=== PATIENT | male | born 1975 | race Caucasian/White ===

== ENCOUNTER 2017-04-06 19:44 | Emergency (ER) | payer OTHER ==
[2017-04-06 19:52] VITALS: BP 128/83; PULSE 100; BMI 25.1
--- NOTE | 2017-04-06 20:41 | PDOC ---
History of Present Illness - General Chief Complaint: Injury Stated Complaint: BACK PAIN Time Seen by Provider: 04/06/17 20:01 - History of Present Illness Initial Comments: 04/06/17 20:41 41 yo M with no significant pmh who presents with lower back pain. Patient reports sharp lower back pain of 2 days duration following rolling out of bed while sleep. No radiation, numbness/tingling, to distal extremities, or posterior thighs. Worse with movement, not improved with forward flexion or leaning forward. No alarm symptoms. Denies N/V, fevers/chills, urinary retention, urinary incontinence, fecal incontinence, or abdominal pain. Reports back injection with Tramadol [address] Mcneil. Pain refractory to Ibuprofen and Tylenol. Denies IV drug use or back trauma. No trauma. Past History - Past Medical History Allergies/Adverse Reactions: Allergies Allergy/AdvReac Type Severity Reaction Status Date / Time No Known Allergies Allergy Verified 04/06/17 19:52 Home Medications: Ambulatory Orders Cyclobenzaprine HCl [Flexeril -] 10 mg PO PRN PRN #30 tablet MDD 3 Tab 04/06/17 Phenytoin Na Extended [Dilantin -] 0 mg PO BID 04/06/17 Quetiapine Fumarate [Seroquel -] 0 mg PO HS 04/06/17 COPD: No Other medical history: epilepsy - Suicide/Smoking/Psychosocial Hx Smoking History: Never smoked Review of Systems - Review of Systems Comments:: 04/06/17 20:57 GENERAL/CONSTITUTIONAL: No fever or chills. No weakness. HEAD, EYES, EARS, NOSE AND THROAT: No change in vision. No ear pain or discharge. No sore throat.- CARDIOVASCULAR: No chest pain or shortness of breath RESPIRATORY: No cough, wheezing, or hemoptysis. GASTROINTESTINAL: No nausea, vomiting, diarrhea or constipation. GENITOURINARY: No dysuria, frequency, or change in urination. MUSCULOSKELETAL: + lower back pain. No joint or muscle swelling or pain. No neck or back pain. SKIN: No rash NEUROLOGIC: No headache, vertigo, loss of consciousness, or change in strength/ sensation. ENDOCRINE: No increased thirst. No abnormal weight change HEMATOLOGIC/LYMPHATIC: No anemia, easy bleeding, or history of blood clots. ALLERGIC/IMMUNOLOGIC: No hives or skin allergy. *Physical Exam - Vital Signs Last Vital Signs Temp Pulse Resp BP Pulse Ox 100 H 16 128/83 98 04/06/17 19:51 04/06/17 19:51 04/06/17 19:51 04/06/17 19:51 - Physical Exam Comments: 04/06/17 20:59 GENERAL: Awake, alert, and fully oriented, in no acute distress HEAD: No signs of trauma, normocephalic, atraumatic EYES: PERRLA, EOMI, sclera anicteric, conjunctiva clear ENT: Hearing grossly normal, nares patent, oropharynx clear without exudates. Moist mucosa NECK: Normal ROM, supple, no JVD, or masses LUNGS: No distress, speaks full sentences, clear to auscultation bilaterally HEART: Regular rate and rhythm, normal S1 and S2, no murmurs, rubs or gallops, peripheral pulses normal and equal bilaterally. ABDOMEN: Soft, nontender, normoactive bowel sounds. No guarding, no rebound. No masses. Neg CVA or suprapubic ttp. EXTREMITIES : Normal inspection, Normal range of motion, no edema. No clubbing or cyanosis. 5/5 strength BL . Sensation to pinprick intact BL. Propioception intact. Reflexes 2 + and symmetric. BACK: + Sacral ttp. Neg straight leg raise test. Clear to inspection. NEUROLOGICAL: Cranial nerves II through XII grossly intact. Normal speech, normal gait, no focal sensorimotor deficits SKIN: Warm, Dry, normal turgor, no rashes or lesions noted. Medical Decision Making - Medical Decision Making 04/06/17 21:18 41 yo M with no significant pmh who presents with sharp, non radiating, lower back pain of 2 days duration following fall from bed while sleep. No numbness/ tingling, to distal extremities, or posterior thighs. Worse with movement. No alarm symptoms; N/V, fevers/chills, urinary retention, urinary incontinence, fecal incontinence, or abdominal pain. Denies IV drug use or back trauma. Physical exam with parapsinal sacral ttp. Neg straight leg raise test. Gross sensorimotor intact. Absent neuro deficits. Low suspicion for cauda equina with absent urinary complaints, or perianal parasthesia. History and physical exam non indicative of spinal stenosis. Reasonable to suspect fracture given mechanism of injury. Low suspicion for herniated disc given neg straight leg raise test and absent midline ttp, with absent sensory change. Pain most likely 2/2 lumbar sacral sprain. ED Course: Tylenol 650 mg PO LUMBAR SACRAL RAD 04/06/17 21:39 Toradol 60 IM 04/06/17 22:53 LUMBAR SACRAL RAD: No fracture or traumatic subluxation. Alignment and vertebral body heights maintained. 04/06/17 22:54 Stable D/c with strict return precautions. *DC/Admit/Observation/Transfer Diagnosis at time of Disposition: Sacral back pain - Discharge Dispostion Disposition: HOME Condition at time of disposition: Stable Admit: No - Prescriptions Prescriptions: Cyclobenzaprine HCl [Flexeril -] 10 mg PO PRN PRN #30 tablet MDD 3 Tab PRN Reason: Back Pain - Referrals Referrals: Dante Mcneil [Primary Care Provider] - - Patient Instructions Printed Discharge Instructions: DI for Back Strain or Sprain Additional Instructions: Please return to the emergency department with any new or worsening symptoms or concerns. Please follow up with your primary care physician within the next 1 week. - Post Discharge Activity - Attestations Physician Attestion: 04/06/17 22:18 I attest to the information in this note.
[2017-04-06] MEDS ORDERED: ACETAMINOPHEN 325 MG TABLET (FP) PO ONE (20:54)
[2017-04-06] MEDS ORDERED: ACETAMINOPHEN 325 MG TABLET (FP) ONE (21:01)
[2017-04-06] MEDS ORDERED: KETOROLAC TROMETHAMINE 30 MG/1 ML VIAL IM ONE (21:38)
--- NOTE | 2017-04-06 21:39 | PDOC ---
Attending Attestation - Resident Resident Name: Jalen Dior - HPI HPI: 04/06/17 21:38 Pt comes with acute on chronic back pain. - Physicial Exam PE: 04/06/17 21:38 agree with resident exam - Medical Decision Making 04/06/17 21:38 Imaging studies pending 04/06/17 22:53 Patient Name: LILIANA JAVED THIS IS A PRELIMINARY REPORT FROM [facility] DATE OF SERVICE: 2017-04-06 21:11:18 IMAGES: 6 EXAM: XR LUMBAR SPINE HISTORY: 41-year-old male fall back pain back spasm COMPARISON: None. FINDINGS: No fracture or traumatic subluxation. Alignment and vertebral body heights are maintained. IMPRESSION: No fracture or traumatic subluxation. If clinically indicated followup outpatient MRI lumbar spine may be needed to evaluate for soft tissue abnormality.
[2017-04-06] MEDS ORDERED: KETOROLAC TROMETHAMINE 30 MG/1 ML VIAL ONE (21:53)
== END 2017-04-06 22:59 | disposition home or self-care (01) ==
LOC: JER 19:44
PROC: 3E0233Z Introduction of Anti-inflammatory into Muscle, Percutaneous Approach (ICD-10-PCS; principal; 2017-04-06)
DX: M54.5 Low back pain (principal); W06.XXXA Fall from bed, initial encounter; Y93.89 Activity, other specified; Y92.013 Bedroom of single-family (private) house as the place of occurrence of the external cause
CPT/HCPCS: 72100-TC; 96372; 99282-25

== ENCOUNTER 2017-05-27 19:21 | Emergency (ER) | payer OTHER ==
[2017-05-27 19:27] VITALS: BP 144/89; PULSE 102; TEMP 98.6; BMI 27.5
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
[2017-05-27] MEDS ORDERED: RANITIDINE HCL 150 MG TABLET (FP) PO ONE (19:51)
[2017-05-27] MEDS ORDERED: MAG HYDROX/AL HYDROX/SIMETH 30 ML UNIT-DOSE CUP PO ONE (19:51)
[2017-05-27] MEDS ORDERED: ONDANSETRON 4 MG TABLET PO ONE (19:51)
--- NOTE | 2017-05-27 19:57 | PDOC ---
History of Present Illness - General Chief Complaint: Cold Symptoms Stated Complaint: VOMITING/DIARRHEA Time Seen by Provider: 05/27/17 19:23 History Source: Patient - History of Present Illness Timing/Duration: reports: constant Abdominal Pain Onset Location: reports: epigastric Past History - Past Medical History Allergies/Adverse Reactions: Allergies Allergy/AdvReac Type Severity Reaction Status Date / Time No Known Allergies Allergy Verified 04/06/17 19:52 Home Medications: Ambulatory Orders Phenytoin Na Extended [Dilantin -] 100 mg PO BID 04/06/17 Quetiapine Fumarate [Seroquel -] 50 mg PO HS 04/06/17 Bismuth Subsalicylate [Pepto-Bismol -] 524 mg PO ASDIR #1 bottle 05/27/17 Ondansetron HCl [Zofran] 4 mg PO Q8H #15 tablet 05/27/17 COPD: No Seizures: Yes - Suicide/Smoking/Psychosocial Hx Smoking History: Never smoked Review of Systems - Review of Systems Constitutional: No: Chills, Fever HEENTM: No: Ear Pain, Throat Pain Respiratory: Yes: Cough. No: Shortness of Breath, Wheezing Cardiac (ROS): No: Chest Pain ABD/GI: Yes: Diarrhea, Nausea, Vomiting *Physical Exam - Vital Signs Last Vital Signs Temp Pulse Resp BP Pulse Ox 98.6 F 102 H 18 144/89 99 05/27/17 19:24 05/27/17 19:24 05/27/17 19:24 05/27/17 19:24 05/27/17 19:24 - Physical Exam General Appearance: Yes: Apparent Distress. No: Appropriately Dressed HEENT: positive: Normal Voice. negative: Scleral Icterus (R), Scleral Icterus ( L) Neck: positive: Supple Respiratory/Chest: positive: Lungs Clear, Normal Breath Sounds. negative: Respiratory Distress Cardiovascular: positive: Regular Rate, S1, S2 Gastrointestinal/Abdominal: positive: Soft. negative: Tender Integumentary: positive: Dry, Warm Neurologic: positive: Fully Oriented, Alert, Normal Mood/Affect Medical Decision Making - Medical Decision Making 05/27/17 19:51 41-year-old male history of seizures, here with nausea, vomiting, diarrhea and upper abdominal pain 4 days. States he vomited 3 times. Denies hematemesis. Had only 1 episode of non-bloody diarrhea and today started complaining of vague upper abdominal pain. Patient also complaining of mostly dry cough with possible pleuritic chest pain on the left and generalized body aches. No fever or chills. Denies sick contacts, recent travel or antibiotic use. Patient well -appearing in ED with mild tachycardia, otherwise examination unremarkable. X- ray sent at triage and is unremarkable. Will discharge with supportive treatment 05/27/17 19:58 *DC/Admit/Observation/Transfer Diagnosis at time of Disposition: Gastroenteritis - Discharge Dispostion Disposition: HOME Condition at time of disposition: Good - Prescriptions Prescriptions: Bismuth Subsalicylate [Pepto-Bismol -] 524 mg PO ASDIR #1 bottle Ondansetron HCl [Zofran] 4 mg PO Q8H #15 tablet - Referrals - Patient Instructions Printed Discharge Instructions: DI for Viral Gastroenteritis -- Adult Additional Instructions: Maintain adequate hydration, for the remainder of your symptoms, maintain a bland diet such as bananas, rice, applesauce and toast. These foods can help make your stools firmer and also replete certainly essential electrolytes. Take medications as directed Return for worsening of symptoms Please follow up with your primary care physician as needed Print Language: ENGLISH - Post Discharge Activity
== END 2017-05-27 20:27 | disposition home or self-care (01) ==
LOC: JERFT 19:21
DX: K52.9 Noninfective gastroenteritis and colitis, unspecified (principal)
CPT/HCPCS: 71046-TC; 99281-25

== ENCOUNTER 2018-09-01 21:06 | Emergency (ER) | payer OTHER ==
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
[2018-09-01 21:52] VITALS: BP 131/88; PULSE 75; TEMP 98.1; BMI 25.1
[2018-09-01] MEDS ORDERED: KETOROLAC TROMETHAMINE 60 MG/2 ML VIAL IM ONE (22:21)
[2018-09-01] MEDS ORDERED: KETOROLAC TROMETHAMINE 60 MG/2 ML VIAL ONE (22:36)
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
== END 2018-09-01 23:30 | disposition home or self-care (01) ==
LOC: JER 21:06
PROC: 3E0233Z Introduction of Anti-inflammatory into Muscle, Percutaneous Approach (ICD-10-PCS; principal; 2018-09-01)
DX: M54.5 Low back pain (principal); Z86.69 Personal history of other diseases of the nervous system and sense organs; Z87.820 Personal history of traumatic brain injury; W18.39XA Other fall on same level, initial encounter; Y93.89 Activity, other specified; Y92.89 Other specified places as the place of occurrence of the external cause; Y99.8 Other external cause status
CPT/HCPCS: 96372; 99281-25

== ENCOUNTER 2018-10-06 08:22 | Emergency (ER) | payer OTHER ==
[2018-10-06 08:28] VITALS: BMI 26.5
[2018-10-06] MEDS ORDERED: morphine CARPU-JECT 4 MG/1 ML DISP.SYRIN IVPUSH ONE (08:53)
[2018-10-06] MEDS ORDERED: SODIUM CHLORIDE 1,000 ML IV STA (08:53)
[2018-10-06] MEDS ORDERED: morphine SULFATE 4 MG/ML VIAL ONE (09:16)
--- NOTE | 2018-10-06 09:16 | PDOC ---
History of Present Illness - General Chief Complaint: Ear Problem Stated Complaint: EAR PAIN Time Seen by Provider: 10/06/18 08:50 History Source: Patient - History of Present Illness Timing/Duration: other Past History - Past Medical History Allergies/Adverse Reactions: Allergies Allergy/AdvReac Type Severity Reaction Status Date / Time No Known Allergies Allergy Verified 10/06/18 08:27 Home Medications: Ambulatory Orders Phenytoin Na Extended [Dilantin -] 100 mg PO BID 04/06/17 Gabapentin 0 mg PO DAILY 10/06/18 COPD: No Seizures: Yes - Immunization History Immunization Up to Date: (Unknown) - Suicide/Smoking/Psychosocial Hx Smoking History: Never smoked Information on smoking cessation initiated: No Hx Alcohol Use: No Drug/Substance Use Hx: No Review of Systems - Review of Systems Constitutional: Yes: Fever. No: Chills Respiratory: No: Shortness of Breath *Physical Exam - Vital Signs Last Vital Signs Temp Pulse Resp BP Pulse Ox 97.6 F 90 19 131/96 97 10/06/18 08:25 10/06/18 08:25 10/06/18 08:25 10/06/18 08:25 10/06/18 08:25 - Physical Exam General Appearance: Yes: Appropriately Dressed HEENT: positive: Normal Voice, Other (extensive ulcerative lesions overlying soft palate/post pharymnx and L nares) Neck: positive: Supple. negative: Lymphadenopathy (R), Lymphadenopathy (L) Respiratory/Chest: negative: Respiratory Distress, Stridor Integumentary: positive: Dry, Warm Neurologic: positive: Fully Oriented, Alert, Normal Mood/Affect ED Treatment Course - LABORATORY CBC & Chemistry Diagram: 10/06/18 09:20 10/06/18 09:20 - RADIOLOGY Radiology Studies Ordered: Category Date Time Status SINUS CT W/O CONTRAST [CT] Stat CT Scan 10/06/18 08:53 Ordered Medical Decision Making - Medical Decision Making 10/06/18 08:55 42 yo male, states he had b/l tonsillectomy/palate/nasal surgery 2/2 sleep apnea /deviated septum last week at [facility], currently on abx (does not remember name) and tylenol #3 but here with worsening pain to posterior pharynx and nasal area and unable to eugenio po since procedure. States he is currently on a puree diet and that when he eats, food comes through his nose. Reports +subj fever. No n/v, stridor or SOB. States he was seen in the ER at [facility] yesterday and discharged from ED to f/u with his surgeon See exam Post op pain, r/o infection S/p recent ENT surgery 2/2 SAVITA/deviated septum On abx and pain meds Unable to eugenio po since Exam remarkable for ulcerative lesions overlying soft palate/posterior pharynx and L nares, ? post op changes -pain control -CT -labs -consider transfer as surgery performed at [facility] 10/06/18 10:26 10/06/18 10:32 Spoke to staff at transfer center who informed me that surgeon was at Dr. Dany Vega who performed surgery on 10/01. States M.D.to call me back to discuss disposition 10/06/18 10:33 10/06/18 11:[address] read pending. I spoke to Dr. Almanza, ENT at [facility], who reports that exam findings most likely postop changes and states CT not necessary though aware that CT was already done. Agrees that if patient cannot tolerate po, needs to be admitted and recommends ER to ER transfer. MD also rec a dose of decadron here. Dr Jin discussed case w/ Dr Pandey, ER attg at [facility], and pt was accepted for transfer as of 10:51 AM. Face sheet faxed and ER nurse to give report. Was told by transfer staff that ETA is within 30 minutes. Will send over medical records including CT disc *DC/Admit/Observation/Transfer Diagnosis at time of Disposition: Post-op pain - Discharge Dispostion Disposition: TRANSFER ACUTE CARE/OTHER HOSP Condition at time of disposition: Fair - Referrals Referrals: Dante Mcneil [Primary Care Provider] - - Patient Instructions - Post Discharge Activity
[2018-10-06 09:39] LABS: BASO % 0.7 % (0-2.0); EOS % 1.1 % (0-4.5); HEMATOCRIT 44.9 % (35.4-49); HEMOGLOBIN 15.1 GM/dL (11.7-16.9); LYMPH % 18.9 % (8-40); MCH 29.7 pg (25.7-33.7); MCHC 33.6 g/dl (32.0-35.9); MEAN CELL VOLUME 88.3 fl (80-96); MEAN PLT VOLUME 7.4 fl (7.5-11.1); MONO % 8.7 % (3.8-10.2); NEUT % 70.6 % (42.8-82.8); PLATELET COUNT 369 K/MM3 (134-434); RBC 5.08 M/mm3 (4.00-5.60); RDW 12.9 % (11.9-15.9); WHITE BLOOD COUNT 11.1 K/mm3 (4.0-10.0)
[2018-10-06 09:55] LABS: INR 1.16 (0.83-1.09); PROTHROMBIN TIME (PATIENT) 13.7 SEC (9.7-13.0)
[2018-10-06 10:05] LABS: ALBUMIN 3.6 g/dl (3.4-5.0); BILIRUBIN,TOTAL 0.6 mg/dL (0.2-1); CALCIUM 9.3 mg/dL (8.5-10.1); CREATININE 0.9 mg/dL (0.55-1.3); POTASSIUM 3.9 mmol/L (3.5-5.1); TOT PROT 8.4 g/dl (6.4-8.2)
[2018-10-06] MEDS ORDERED: DEXAMETHASONE SOD PHOSPHATE 10 MG/1 ML VIAL IVPUSH ONE (10:40)
[2018-10-06] MEDS ORDERED: DEXAMETHASONE SOD PHOSPHATE 10 MG/1 ML VIAL ONE (10:47)
--- NOTE | 2018-10-06 11:04 | PDOC ---
*Physical Exam - Vital Signs Last Vital Signs Temp Pulse Resp BP Pulse Ox 97.6 F 90 19 131/96 97 10/06/18 08:25 10/06/18 08:25 10/06/18 08:25 10/06/18 08:25 10/06/18 08:25 ED Treatment Course - LABORATORY CBC & Chemistry Diagram: 10/06/18 09:20 10/06/18 09:20 - ADDITIONAL ORDERS Additional order review: Laboratory Results 10/06/18 10/06/18 09:20 09:20 PT with INR 13.70 H INR 1.16 H Sodium 137 Potassium 3.9 Chloride 103 Carbon Dioxide 28 Anion Gap 6 L BUN 23 H Creatinine 0.9 Est GFR (CKD-EPI)AfAm 121.67 Est GFR (CKD-EPI)NonAf 104.98 Random Glucose 106 Calcium 9.3 Total Bilirubin 0.6 AST 19 ALT 56 Alkaline Phosphatase 148 H Total Protein 8.4 H Albumin 3.6 10/06/18 09:20 RBC 5.08 MCV 88.3 MCHC 33.6 RDW 12.9 MPV 7.4 L Neutrophils % 70.6 Lymphocytes % 18.9 Monocytes % 8.7 Eosinophils % 1.1 Basophils % 0.7 - Medications Given in the ED: ED Medications Discontinued Medications Generic Name Dose Route Start Last Admin Trade Name Freq PRN Reason Stop Dose Admin Sodium Chloride 1,000 mls @ 1,000 mls/hr 10/06/18 08:53 10/06/18 09:33 Normal Saline - IV 10/06/18 09:52 1,000 mls/hr ASDIR STA Administration Morphine Sulfate 4 mg 10/06/18 08:53 10/06/18 09:34 Morphine Injection - IVPUSH 10/06/18 08:54 4 mg ONCE ONE Administration Medical Decision Making - Medical Decision Making 10/06/18 11:03 42y/o M presents for evaluation of pain/swelling to ermelinda-/naso pharynx following ENT surgery at [facility]. VSS, wbc 11 ct pending discussed with operating ENT Dr. Vega, recommends transfer accepted for ED to ED transfer *DC/Admit/Observation/Transfer - Referrals Referrals: Dante Mcneil [Primary Care Provider] - - Patient Instructions - Post Discharge Activity
[2018-10-06 11:13] VITALS: BP 126/86; PULSE 79; TEMP 97.9
== END 2018-10-06 11:24 | disposition short-term general hospital (02) ==
LOC: JER 08:22 → JERFT 08:22 → JER 11:24
PROC: 3E0337Z Introduction of Electrolytic and Water Balance Substance into Peripheral Vein, Percutaneous Approach (ICD-10-PCS; principal; 2018-10-06)
PROC: 3E0333Z Introduction of Anti-inflammatory into Peripheral Vein, Percutaneous Approach (ICD-10-PCS; 2018-10-06)
DX: G89.18 Other acute postprocedural pain (principal); R07.0 Pain in throat
CPT/HCPCS: 36415; 70487-TC; 80053; 85025; 85610; 86850; 86900; 86901; 96361; 96374; 96375; 99283-25; J1100; J7030

== ENCOUNTER 2018-12-12 12:11 | Emergency (ER) | payer OTHER ==
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
[2018-12-12 12:31] VITALS: BMI 26.5
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
[2018-12-12 14:30] LABS: BASO % 0.7 % (0-2.0); EOS % 0.2 % (0-4.5); HEMATOCRIT 45.9 % (35.4-49); HEMOGLOBIN 15.6 GM/dL (11.7-16.9); LYMPH % 20.9 % (8-40); MCH 29.8 pg (25.7-33.7); MEAN CELL VOLUME 87.5 fl (80-96); MEAN PLT VOLUME 7.7 fl (7.5-11.1); MONO % 6.8 % (3.8-10.2); NEUT % 71.4 % (42.8-82.8); PLATELET COUNT 278 K/MM3 (134-434); RBC 5.24 M/mm3 (4.00-5.60); RDW 13.1 % (11.9-15.9)
[2018-12-12 14:57] LABS: ALBUMIN 3.9 g/dl (3.4-5.0); BILIRUBIN,TOTAL 0.4 mg/dL (0.2-1); BLOOD UREA NITROGEN 12.2 mg/dL (7-18); CALCIUM 9.3 mg/dL (8.5-10.1); CREATININE 0.9 mg/dL (0.55-1.3); MAGNESIUM 2.2 mg/dL (1.8-2.4); METHADONE, UR NEGATIVE ng/ml (CUTOFF=300); OPIATES, URI NEGATIVE ng/ml (CUTOFF=300); PHENCYCLIDINE,URINE NEGATIVE ng/ml (CUTOFF=25); POTASSIUM 4.4 mmol/L (3.5-5.1); TOT PROT 7.9 g/dl (6.4-8.2); URINE AMPHETAMINES NEGATIVE ng/ml (CUTOFF=500); URINE BARBITURATES NEGATIVE ng/ml (CUTOFF=200); URINE BENZODIAZEPINES NEGATIVE ng/ml (CUTOFF=200)
[2018-12-12 15:19] LABS: COCAINE, UR POSITIVE ng/ml (CUTOFF=300)
[2018-12-12] MEDS ORDERED: PHENYTOIN SODIUM 100 MG/2 ML VIAL IVPB ONE (15:37)
[2018-12-12] MEDS ORDERED: MAG HYDROX/AL HYDROX/SIMETH 30 ML UNIT-DOSE CUP PO ONE (15:38)
[2018-12-12] MEDS ORDERED: FAMOTIDINE 20 MG/50 ML IVPB 20 MG/50 ML MG IVPB ONE ×2 (15:39→15:56)
[2018-12-12] MEDS ORDERED: MAG HYDROX/AL HYDROX/SIMETH 30 ML UNIT-DOSE CUP ONE (15:56)
[2018-12-12 17:38] VITALS: BP 130/88; PULSE 65; TEMP 98.5
--- NOTE | 2018-12-13 10:36 | EKG ---
Test Reason : Blood Pressure : / mmHG Vent. Rate : 064 BPM Atrial Rate : 064 BPM P-R Int : 160 ms QRS Dur : 086 ms QT Int : 452 ms P-R-T Axes : 066 064 049 degrees QTc Int : 466 ms NORMAL SINUS RHYTHM POSSIBLE LEFT ATRIAL ENLARGEMENT EARLY REPOLARIZATION PATTERN ST ELEVATION INFERIOR LEADS NO PREVIOUS ECGS AVAILABLE Confirmed by MARZENA LE MD ([id number]) on 12/13/2018 10:36:00 AM Referred By: Confirmed By:MARZENA LE MD
== END 2018-12-12 18:27 | disposition home or self-care (01) ==
LOC: JER 12:11
PROC: 3E033GC Introduction of Other Therapeutic Substance into Peripheral Vein, Percutaneous Approach (ICD-10-PCS; principal; 2018-12-12)
PROC: 3E033GC Introduction of Other Therapeutic Substance into Peripheral Vein, Percutaneous Approach (ICD-10-PCS; 2018-12-12)
DX: R56.1 Post traumatic seizures (principal); F14.10 Cocaine abuse, uncomplicated; Z87.828 Personal history of other (healed) physical injury and trauma; M54.89 Other dorsalgia; G89.29 Other chronic pain; Z86.59 Personal history of other mental and behavioral disorders; Z87.891 Personal history of nicotine dependence
CPT/HCPCS: 36415; 70450-TC; 71045-TC-FY; 80053; 80185; 80307; 82550; 83690; 83735; 84484; 85025; 93005; 93010; 96365; 96375; 99284-25

== ENCOUNTER 2022-07-02 13:39 | Inpatient (IN) | payer OTHER ==
[2022-07-02 15:18] VITALS: BMI 26.6
[2022-07-02] MEDS ORDERED: MAGNESIUM HYDROX 2400MG/30ML ORAL SUSPENSION 30 ML CUP PO PRN (15:27)
[2022-07-02] MEDS ORDERED: BISMUTH SUBSALICYLATE 524 MG/30 ML PO PRN (15:27)
[2022-07-02] MEDS ORDERED: IBUPROFEN 600 MG TABLET (FP) PO PRN (15:27)
[2022-07-02] MEDS ORDERED: METHOCARBAMOL 500 MG TABLET PO PRN (15:27)
[2022-07-02] MEDS ORDERED: POLYETHYLENE GLYCOL (HEALTHYLAX) 3350 17 GM PACKET PO PRN (15:27)
[2022-07-02] MEDS ORDERED: LOPERAMIDE HCL 2 MG CAPSULE PO PRN (15:27)
[2022-07-02] MEDS ORDERED: ONDANSETRON *ODT* 4 MG TABLET SL PRN (15:27)
[2022-07-02] MEDS ORDERED: NICOTINE 10 MG CARTRIDGE (INHALER) IH PRN (15:27)
[2022-07-02] MEDS ORDERED: MAG HYDROX/AL HYDROX/SIMETH 30 ML UNIT-DOSE CUP PO PRN (15:27)
[2022-07-02] MEDS ORDERED: IBUPROFEN 400 MG TABLET (FP) PO PRN (15:27)
[2022-07-02] MEDS ORDERED: hydrOXYzine PAMOATE 25 MG CAPSULE (FP) PO PRN (15:27)
[2022-07-02] MEDS ORDERED: DICYCLOMINE HCL 10 MG CAPSULE PO PRN (15:27)
[2022-07-02] MEDS ORDERED: BENZOCAINE/MENTHOL (CHLORASEPTIC ) LOZENGE MM PRN (15:27)
[2022-07-02] MEDS ORDERED: NALOXONE HCL (KLOXXADO) 8 MG SPRAY NS PRN (15:27)
[2022-07-02] MEDS ORDERED: ACETAMINOPHEN 325 MG TABLET (FP) PO PRN ×2 (15:27)
[2022-07-02] MEDS: NICOTINE 14 MG/24 HOURS TOPICAL PATCH TD SCH (17:21)
[2022-07-02] MEDS: PRENATAL VITAMINS W/ FOLIC ACID TABLET (FP) PO SCH (17:21)
[2022-07-02] MEDS: MELATONIN 5 MG TABLETS PO SCH (22:26)
[2022-07-02] MEDS: THIAMINE HCL 100 MG TABLET (FP) PO SCH (22:26)
[2022-07-03] MEDS ORDERED: chlordiazePOXIDE HCL 25 MG CAPSULE PO PRN (08:57)
[2022-07-03] MEDS: chlordiazePOXIDE HCL 25 MG CAPSULE PO SCH ×3 (10:07→22:17)
[2022-07-03] MEDS: PRENATAL VITAMINS W/ FOLIC ACID TABLET (FP) PO SCH (10:07)
[2022-07-03] MEDS: NICOTINE 14 MG/24 HOURS TOPICAL PATCH TD SCH (10:41)
[2022-07-03 11:32] LABS: HEMATOCRIT 40.3 % (35.4-49); HEMOGLOBIN 13.5 GM/dL (11.7-16.9); MCH 29.4 pg (25.7-33.7); MCHC 33.5 g/dl (32.0-35.9); MEAN CELL VOLUME 87.9 fl (80-96); MEAN PLT VOLUME 8.4 fl (7.5-11.1); PLATELET COUNT 216 10^3/uL (134-434); RBC 4.59 M/mm3 (4.00-5.60); RDW 13.5 % (11.9-15.9); WHITE BLOOD COUNT 6.6 K/mm3 (4.0-10.0)
[2022-07-03 11:53] LABS: ALBUMIN 3.1 g/dl (3.4-5.0); BLOOD UREA NITROGEN 8.1 mg/dL (7-18); CALCIUM 8.6 mg/dL (8.5-10.1)
[2022-07-03 11:55] LABS: CREATININE 0.7 mg/dL (0.55-1.3)
[2022-07-03 11:57] LABS: BILIRUBIN,TOTAL 0.2 mg/dL (0.2-1); TOT PROT 5.8 g/dl (6.4-8.2)
[2022-07-03] MEDS ORDERED: POTASSIUM CHLORIDE ORAL LIQUID 20 MEQ/15 ML PO ONE (13:59)
[2022-07-03] MEDS: OLANZapine 10 MG TABLET PO SCH (22:17)
[2022-07-03] MEDS: THIAMINE HCL 100 MG TABLET (FP) PO SCH (22:17)
[2022-07-03] MEDS: POTASSIUM CHLORIDE ORAL LIQUID 20 MEQ/15 ML PO SCH (22:17)
[2022-07-03] MEDS: MELATONIN 5 MG TABLETS PO SCH (22:17)
[2022-07-04] MEDS: chlordiazePOXIDE HCL 25 MG CAPSULE PO SCH ×4 (05:52→22:34)
[2022-07-04] MEDS ORDERED: PATIENT'S OWN MEDICATION (NON-FORMULARY) (Olanzapine [Olanzapine] 10 MG Tablet) PO SCH (10:00)
[2022-07-04] MEDS: POTASSIUM CHLORIDE ORAL LIQUID 20 MEQ/15 ML PO SCH ×2 (10:26→22:34)
[2022-07-04] MEDS: PRENATAL VITAMINS W/ FOLIC ACID TABLET (FP) PO SCH (10:26)
[2022-07-04] MEDS: NICOTINE 14 MG/24 HOURS TOPICAL PATCH TD SCH (10:41)
[2022-07-04] MEDS: THIAMINE HCL 100 MG TABLET (FP) PO SCH (22:34)
[2022-07-04] MEDS: OLANZapine 10 MG TABLET PO SCH (22:34)
[2022-07-04] MEDS: MELATONIN 5 MG TABLETS PO SCH (22:34)
[2022-07-05] MEDS: chlordiazePOXIDE HCL 25 MG CAPSULE PO SCH ×4 (05:46→22:52)
[2022-07-05] MEDS: NICOTINE 14 MG/24 HOURS TOPICAL PATCH TD SCH (10:32)
[2022-07-05] MEDS: PRENATAL VITAMINS W/ FOLIC ACID TABLET (FP) PO SCH (10:32)
[2022-07-05] MEDS: MELATONIN 5 MG TABLETS PO SCH (22:52)
[2022-07-05] MEDS: OLANZapine 10 MG TABLET PO SCH (22:52)
[2022-07-05] MEDS: THIAMINE HCL 100 MG TABLET (FP) PO SCH (22:52)
[2022-07-06] MEDS ORDERED: chlordiazePOXIDE HCL 10 MG CAPSULE PO PRN
[2022-07-06] MEDS: chlordiazePOXIDE HCL 10 MG CAPSULE PO SCH ×4 (05:40→22:26)
[2022-07-06] MEDS: PRENATAL VITAMINS W/ FOLIC ACID TABLET (FP) PO SCH (10:25)
[2022-07-06] MEDS: NICOTINE 14 MG/24 HOURS TOPICAL PATCH TD SCH (10:26)
[2022-07-06] MEDS: MELATONIN 5 MG TABLETS PO SCH (22:26)
[2022-07-06] MEDS: THIAMINE HCL 100 MG TABLET (FP) PO SCH (22:26)
[2022-07-06] MEDS: OLANZapine 10 MG TABLET PO SCH (22:26)
[2022-07-07] MEDS: chlordiazePOXIDE HCL 10 MG CAPSULE PO SCH ×2 (05:41→17:29)
[2022-07-07] MEDS: PRENATAL VITAMINS W/ FOLIC ACID TABLET (FP) PO SCH (10:48)
[2022-07-07] MEDS: NICOTINE 14 MG/24 HOURS TOPICAL PATCH TD SCH (10:49)
[2022-07-07] MEDS: MELATONIN 5 MG TABLETS PO SCH (22:19)
[2022-07-07] MEDS: THIAMINE HCL 100 MG TABLET (FP) PO SCH (22:19)
[2022-07-07] MEDS: OLANZapine 10 MG TABLET PO SCH (22:19)
[2022-07-08] MEDS ORDERED: chlordiazePOXIDE HCL 10 MG CAPSULE PO ONE (05:00)
[2022-07-08 06:04] VITALS: RESP 18
[2022-07-08 09:12] VITALS: BP 121/72; PULSE 90; TEMP 97.3
[2022-07-08] MEDS: PRENATAL VITAMINS W/ FOLIC ACID TABLET (FP) PO SCH (10:16)
[2022-07-08] MEDS: NICOTINE 14 MG/24 HOURS TOPICAL PATCH TD SCH (10:18)
[2022-07-08] MEDS ORDERED: PHENYTOIN NA EXTENDED 100 MG CAPSULE (FP) PO SCH ×2 (14:00→22:00)
== END 2022-07-08 12:37 | disposition home or self-care (01) | DRG 774 ==
LOC: YASAS 13:39 → Y3N 16:38
PROVIDERS: ADMIT Allergy & Immunology; ATTEND Surgery
PROC: HZ2ZZZZ Detoxification Services for Substance Abuse Treatment (ICD-10-PCS; principal; 2022-07-02)
DX: F10.230 Alcohol dependence with withdrawal, uncomplicated (principal); F14.20 Cocaine dependence, uncomplicated; F17.210 Nicotine dependence, cigarettes, uncomplicated; F20.9 Schizophrenia, unspecified; F32.9 Major depressive disorder, single episode, unspecified; G40.909 Epilepsy, unspecified, not intractable, without status epilepticus; Z87.820 Personal history of traumatic brain injury; Z91.14 Patient's other noncompliance with medication regimen; Z28.310 Unvaccinated for COVID-19; Z28.9 Immunization not carried out for unspecified reason
CPT/HCPCS: 36415; 80053; 82947; 83036; 84132; 85027; 86780; 93005; 93010; C9803-CS; U0003; U0005

== ENCOUNTER 2024-03-02 12:43 | Inpatient (IN) | payer OTHER ==
[2024-03-02 13:24] VITALS: BMI 20.2
[2024-03-02] MEDS ORDERED: BISMUTH SUBSALICYLATE 262 MG/15 ML BTL PO PRN (13:58)
[2024-03-02] MEDS ORDERED: BENZOCAINE/MENTHOL (CHLORASEPTIC ) LOZENGE MM PRN (13:58)
[2024-03-02] MEDS ORDERED: METHOCARBAMOL 500 MG TABLET PO PRN (13:58)
[2024-03-02] MEDS ORDERED: ACETAMINOPHEN 325 MG TABLET (FP) PO PRN (13:58)
[2024-03-02] MEDS ORDERED: MAG HYDROX/AL HYDROX/SIMETH 30 ML UNIT-DOSE CUP PO PRN (13:58)
[2024-03-02] MEDS ORDERED: NALOXONE (NARCAN) HCL 4 MG/0.1 ML SPRAY NS PRN (13:58)
[2024-03-02] MEDS ORDERED: LOPERAMIDE HCL 2 MG CAPSULE PO PRN (13:58)
[2024-03-02] MEDS ORDERED: DICYCLOMINE HCL 10 MG CAPSULE PO PRN (13:58)
[2024-03-02] MEDS ORDERED: BENZONATATE 200 MG CAPSULE PO PRN (13:58)
[2024-03-02] MEDS ORDERED: hydrOXYzine PAMOATE 25 MG CAPSULE (FP) PO PRN (13:58)
[2024-03-02] MEDS ORDERED: MAGNESIUM HYDROX 2400MG/30ML ORAL SUSPENSION 30 ML CUP PO PRN (13:58)
[2024-03-02] MEDS ORDERED: guaiFENesin 600 MG TABLET.ER (FP) PO PRN (13:58)
[2024-03-02] MEDS ORDERED: POLYETHYLENE GLYCOL (HEALTHYLAX) 3350 17 GM PACKET PO PRN (13:58)
[2024-03-02] MEDS ORDERED: ONDANSETRON *ODT* 4 MG TABLET SL PRN (13:58)
[2024-03-02] MEDS ORDERED: IBUPROFEN 400 MG TABLET (FP) PO PRN (13:58)
[2024-03-02] MEDS ORDERED: PRENATAL VITAMINS W/ FOLIC ACID TABLET (FP) PO ONE (14:51)
[2024-03-02] MEDS: PRENATAL VITAMINS W/ FOLIC ACID TABLET (FP) PO SCH (14:54)
[2024-03-02] MEDS: THIAMINE 100 MG TABLET PO SCH (22:19)
[2024-03-02] MEDS: MELATONIN 5 MG TABLETS PO SCH (22:19)
[2024-03-02] MEDS: PHENYTOIN NA EXTENDED 100 MG CAPSULE (FP) PO SCH (22:22)
[2024-03-03] MEDS: chlordiazePOXIDE HCL 25 MG CAPSULE PO SCH (10:50)
[2024-03-03 11:30] LABS: CHLORIDE 101 mmol/L (98-107); SODIUM 139 mmol/L (136-145)
[2024-03-03 11:33] LABS: ALBUMIN 2.9 g/dl (3.4-5.0); ANION GAP 7 mmol/L (4-13); BLOOD UREA NITROGEN 10.6 mg/dL (7-18); CALCIUM 8.7 mg/dL (8.5-10.1); CO2 31 mmol/L (21-32); GLUCOSE,RANDOM 113 mg/dL (74-106)
[2024-03-03 11:36] LABS: CREATININE 0.9 mg/dL (0.55-1.3); SGOT/AST 8 U/L (15-37); SGPT/ALT 18 U/L (13-61)
[2024-03-03 11:37] LABS: BILIRUBIN,TOTAL 0.3 mg/dL (0.2-1); HEMATOCRIT 43.8 % (35.4-49); HEMOGLOBIN 14.8 GM/dL (11.7-16.9); MCH 30.2 pg (25.7-33.7); MCHC 33.9 g/dl (32.0-35.9); MEAN CELL VOLUME 89.2 fl (80-96); MEAN PLT VOLUME 7.8 fl (7.5-11.1); PLATELET COUNT 250 10^3/uL (134-434); RBC 4.92 M/mm3 (4.00-5.60); RDW 13.3 % (11.9-15.9); TOT PROT 6.4 g/dl (6.4-8.2); WHITE BLOOD COUNT 14.9 K/mm3 (4.0-10.0)
[2024-03-03 11:39] LABS: ALK PHOS 80 U/L (45-117)
[2024-03-03] MEDS: PHENYTOIN NA EXTENDED 100 MG CAPSULE (FP) PO ONE (15:53)
[2024-03-03] MEDS: IBUPROFEN 600 MG TABLET (FP) PO PRN (15:56)
[2024-03-04] MEDS: chlordiazePOXIDE HCL 25 MG CAPSULE PO PRN (22:57)
[2024-03-05] MEDS: chlordiazePOXIDE HCL 25 MG CAPSULE PO SCH (05:47)
[2024-03-05 17:37] LABS: BASO % 0.8 % (0-2.0); EOS % 4.3 % (0-4.5); HEMATOCRIT 43.7 % (35.4-49); HEMOGLOBIN 14.6 GM/dL (11.7-16.9); LYMPH % 26.1 % (8-40); MCH 30.2 pg (25.7-33.7); MCHC 33.4 g/dl (32.0-35.9); MEAN CELL VOLUME 90.3 fl (80-96); MEAN PLT VOLUME 8.1 fl (7.5-11.1); MONO % 12.6 % (3.8-10.2); NEUT % 56.2 % (42.8-82.8); PLATELET COUNT 279 10^3/uL (134-434); RBC 4.84 M/mm3 (4.00-5.60); RDW 13.6 % (11.9-15.9); WHITE BLOOD COUNT 8.1 K/mm3 (4.0-10.0)
[2024-03-06] MEDS ORDERED: chlordiazePOXIDE HCL 10 MG CAPSULE PO PRN
[2024-03-06] MEDS: chlordiazePOXIDE HCL 10 MG CAPSULE PO SCH (05:35)
[2024-03-07] MEDS: chlordiazePOXIDE HCL 10 MG CAPSULE PO SCH (05:42)
[2024-03-08] MEDS: chlordiazePOXIDE HCL 10 MG CAPSULE PO ONE (06:16)
[2024-03-09 09:05] VITALS: BP 110/71; PULSE 92; RESP 18; TEMP 98.2
[2024-03-09] MEDS: NALOXONE (NYS OPIOID OVERDOSE PROGRAM) 4 MG/0.1 ML SPRAY NS PRN (10:34)
== END 2024-03-09 12:13 | disposition home or self-care (01) | DRG 774 ==
LOC: YASAS 12:43 → Y6N 14:41 → UNDODISIN 03-09 07:57
PROVIDERS: ADMIT Allergy & Immunology; ATTEND Surgery
PROC: HZ2ZZZZ Detoxification Services for Substance Abuse Treatment (ICD-10-PCS; principal; 2024-03-02)
DX: F10.230 Alcohol dependence with withdrawal, uncomplicated (principal); F14.20 Cocaine dependence, uncomplicated; F13.20 Sedative, hypnotic or anxiolytic dependence, uncomplicated; F17.210 Nicotine dependence, cigarettes, uncomplicated; F20.9 Schizophrenia, unspecified; D72.829 Elevated white blood cell count, unspecified; R56.1 Post traumatic seizures; Z99.89 Dependence on other enabling machines and devices
CPT/HCPCS: 36415; 80053; 80185; 80305; 80307; 85025; 85027; 86780; 93005; 93010

== ENCOUNTER 2025-03-15 16:22 | Emergency (ER) | payer OTHER ==
[2025-03-15 16:33] VITALS: BP 127/85; PULSE 86; RESP 18; TEMP 97.9; BMI 20.7
== END 2025-03-15 17:15 | disposition home or self-care (01) ==
LOC: JERFT 16:22
DX: S42.301D Unspecified fracture of shaft of humerus, right arm, subsequent encounter for fracture with routine healing (principal); X58.XXXA Exposure to other specified factors, initial encounter
CPT/HCPCS: 99283-25